=== PATIENT | male | born 1955 | race Caucasian/White ===

== ENCOUNTER 2019-12-29 23:24 | Emergency (ER) | payer MEDICAID ==
[~2019-12-29] VITALS: Ht 172.7 cm; Wt 77.1 kg
[2019-12-29 23:30] VITALS: BP_SYST 156
--- NOTE | 2019-12-29 23:39 | NUR ---
Pt ambulatory to bed 7 for evaluation
--- NOTE | 2019-12-29 23:40 | NUR ---
PT AAO AND AMBULATORY C/O HIGH BLOOD PRESSURE TODAY AND FORGOT HIS BLOOD PRESSURE MEDICATION AT HOME WHEN CAME TO VISIT HIS FAMILY. PT DENIES ANY SYMPTOMS CURRENTLY OR PAIN.
--- NOTE | 2019-12-29 23:41 | NUR ---
ER Dr. STEVENSON at bedside examining patient.
[2019-12-29 23:45] VITALS: BP_SYST 156
--- NOTE | 2019-12-29 23:45 | NUR ---
Patient given written and verbal discharge instructions and verbalizes understanding. DR. ELVA TITUS MD discussed with patient the results and treatment provided. Patient in stable condition. ID arm band removed. Patient educated on pain management and to follow up with PMD. Pain Scale 0/10. Opportunity for questions provided and answered.
== END 2019-12-29 23:45 | disposition home or self-care (01) ==
LOC: SED 23:24
DX: F41.9 Anxiety disorder, unspecified (principal); R00.2 Palpitations; R06.4 Hyperventilation; Z88.0 Allergy status to penicillin
CPT/HCPCS: 99281

== ENCOUNTER 2021-02-04 23:02 | Emergency (ER) | payer MEDICAID ==
[~2021-02-04] VITALS: Ht 177.8 cm; Wt 70.3 kg
[2021-02-04 23:02] VITALS: BP_SYST 143
--- NOTE | 2021-02-04 23:02 | NUR ---
Patient triaged and placed in waiting room. VSS and patient appears in no acute distress at this time. Accompanied by , awaiting available bed, and MD notified of need for MSE.
--- NOTE | 2021-02-05 00:40 | NUR ---
Patient called 3x, no answer. Patient left without being seen. No further treatent provided. ER MD aware
== END 2021-02-05 00:40 | disposition left against medical advice (07) ==
LOC: SED 23:02
DX: R07.9 Chest pain, unspecified (principal); Z53.21 Procedure and treatment not carried out due to patient leaving prior to being seen by health care provider
CPT/HCPCS: 93005

== ENCOUNTER → 2021-09-03 | Emergency (ER) | payer MEDICAID ==
--- NOTE | 2021-09-03 23:39 | NUR ---
patient left without being seen
== END | disposition left against medical advice (07) ==
LOC: SED 23:00
DX: I10 Essential (primary) hypertension (principal); Z79.899 Other long term (current) drug therapy; Z53.21 Procedure and treatment not carried out due to patient leaving prior to being seen by health care provider

== ENCOUNTER 2022-02-15 18:54 | Emergency (ER) | payer MEDICAID ==
[~2022-02-15] VITALS: Ht 175.3 cm; Wt 72.6 kg
[2022-02-15 19:07] VITALS: BP_SYST 184
[2022-02-15 20:08] VITALS: BP_SYST 132
== END 2022-02-15 20:08 | disposition home or self-care (01) ==
LOC: SED 18:54
DX: F41.1 Generalized anxiety disorder (principal); R42 Dizziness and giddiness; R44.1 Visual hallucinations; I10 Essential (primary) hypertension; Z88.0 Allergy status to penicillin; Z79.899 Other long term (current) drug therapy
CPT/HCPCS: 99281

== ENCOUNTER 2022-05-13 19:40 | Emergency (ER) | payer MEDICAID ==
[~2022-05-13] VITALS: Ht 175.3 cm; Wt 69.9 kg
[2022-05-13 19:40] VITALS: BP_SYST 147
[2022-05-13] MEDS ORDERED: ASPIRIN 81 MG TAB.CHEW PO ONE (20:00)
[2022-05-13 20:20] LABS: BASOPHILS % (AUTO) 0.3 % (0.0-2.0); EOSINOPHILS # (AUTO) 0.1 K/uL (0.0-0.4); EOSINOPHILS % (AUTO) 0.8 % (0.0-4.0); HEMATOCRIT 37.1 % (36-54); HEMOGLOBIN 12.3 g/dL (14.0-18.0); LYMPHOCYTES # (AUTO) 1.7 K/uL (1.0-5.5); LYMPHOCYTES % (AUTO) 28.4 % (20.5-51.5); MEAN CORPUSCULAR HEMOGLOBIN 32 pg (27-31); MEAN CORPUSCULAR HGB CONC 33 % (32-36); MEAN CORPUSCULAR VOLUME 96 fL (79.0-98.0); MONOCYTES # (AUTO) 0.5 K/uL (0.0-1.0); MONOCYTES % (AUTO) 7.9 % (1.7-9.3); NEUTROPHILS # (AUTO) 3.8 K/uL (1.8-7.7); NEUTROPHILS % (AUTO) 62.6 % (40.0-70.0); PLATELET COUNT (AUTO) 129 K/uL (130-430); RED BLOOD CELL COUNT(AUTO) 3.88 MIL/uL (4.2-6.2); RED CELL DISTRIBUTION WIDTH 14.3 % (9.0-15.0); WHITE BLOOD COUNT (AUTO) 6.1 K/uL (4.8-10.8)
[2022-05-13 20:33] LABS: ANION GAP 7 (5-15); CHLORIDE 103 mmol/L (98-107); CREATININE 0.91 mg/dL (0.55-1.30); GLUCOSE 116 mg/dL (70-99); UREA NITROGEN, BLOOD 18 mg/dL (8-21)
[2022-05-13 20:42] LABS: ALBUMIN 3.8 g/dL (3.4-4.8); ASPARTATE AMINOTRANSFERASE 18 U/L (10-37); TOTAL BILIRUBIN 0.4 mg/dL (0.0-1.0)
[2022-05-13 20:48] LABS: GFR AFRICAN AMERICAN 108 mL/min (>90)
[2022-05-13 20:55] VITALS: BP_SYST 138
[2022-05-13 21:01] LABS: ALANINE AMINOTRANSFERASE 20 U/L (12-78)
== END 2022-05-13 20:55 | disposition home or self-care (01) ==
LOC: SED 19:40
DX: R07.9 Chest pain, unspecified (principal); R20.2 Paresthesia of skin; I10 Essential (primary) hypertension; Z88.0 Allergy status to penicillin; Z79.899 Other long term (current) drug therapy
CPT/HCPCS: 36415; 71045; 80053; 84484; 85025; 93005; 99285

== ENCOUNTER 2022-06-21 01:12 | Emergency (ER) | payer MEDICAID ==
[2022-06-21 01:20] VITALS: BP_SYST 147
--- NOTE | 2022-06-21 01:20 | NUR ---
Patient to ER bed 05 to gown for evaluation. Side rails up. Report given to LINCOLN BOLTON.
--- NOTE | 2022-06-21 01:21 | NUR ---
Dr. Todd at bedside examining the patient.
[2022-06-21] MEDS ORDERED: DIPHTH,PERTUSS(ACELL),TET VAC 0.5 ML VIAL (Tdap) I.M. ONE (02:30)
[2022-06-21] MEDS ORDERED: KETOROLAC TROMETHAMINE 15 MG VIAL IM ONE (02:30)
--- NOTE | 2022-06-21 02:30 | NUR ---
Dr. Todd at bedside re-examining the patient.
[2022-06-21] MEDS ORDERED: LIDOCAINE 1%, 20 ML MDV 20 ML ONE (03:10)
[2022-06-21] MEDS ORDERED: LIDOCAINE 1% 10 MG/ML, 20 ML MDV SUBCUT ONE (03:15)
[2022-06-21] MEDS ORDERED: ACET-2634 PO (03:41)
[2022-06-21 03:46] VITALS: BP_SYST 148
--- NOTE | 2022-06-21 03:49 | NUR ---
Patient alert and oriented x4, respirations even and unlabored, speaking in full sentences, and ambulating with a steady gait. VSS, denied any acute distress at this time. Okay for discharge per Dr. Todd. After care instructions and prescriptions given. ED and 911 precautions given. Patient verbalized understanding.
== END 2022-06-21 03:46 | disposition home or self-care (01) ==
LOC: SED 01:12
DX: S02.5XXA Fracture of tooth (traumatic), initial encounter for closed fracture (principal); S01.511A Laceration without foreign body of lip, initial encounter; I10 Essential (primary) hypertension; Z88.0 Allergy status to penicillin; Z79.899 Other long term (current) drug therapy; W06.XXXA Fall from bed, initial encounter; Y93.89 Activity, other specified; Y92.89 Other specified places as the place of occurrence of the external cause; Y99.8 Other external cause status
CPT/HCPCS: 99285; 70486; 76376; 90715; 96372; 90471; 12011; J1885; J2001